=== PATIENT | female | born 1935 | race Caucasian/White ===

== ENCOUNTER 2018-10-16 10:13 | Inpatient (IN) ==
[2018-10-16] MEDS ORDERED: SODIUM CHLORIDE 0.9% 1,000 ML IV STA ×2 (10:36→12:09)
[2018-10-16] MEDS ORDERED: PIPERACILLIN/TAZOBACTAM 3,375 MG in SODIUM CHLORIDE 0.9% 100 ML IV STA (10:36)
[2018-10-16 10:54] LABS: Basophils # 0.1 10*3/uL (0.0-0.2); Basophils % 1.3 % (0.0-0.8); Hematocrit 48.7 VOL% (35.7-47.0); Hemoglobin 16.3 GM/DL (12.0-16.0); Immature Granulocytes % 0.7 %; Immature Granulocytes Absolute 0.03 #; Lymphocytes # 0.2 10*3/uL (1.4-4.0); Lymphocytes % 3.6 % (21.3-54.2); Mean Corpuscular HGB Conc 33.5 GM/DL (32-36); Mean Corpuscular Hemoglobin 33 PG (27-34); Mean Corpuscular Volume 99.2 FL (87-102); Mean Platelet Volume 12.2 FL (9.6-12.0); Monocytes # 0.1 10*3/uL (0.11-0.8); Monocytes % 1.1 % (1.7-12.7); Neutrophils # 4.2 10*3/uL (1.4-7.4); Neutrophils % 93.3 % (38.7-73.9); Platelet Count 108 T/CUMM (130-400); Red Blood Count 4.91 MC/CUMM (3.8-5.5); Red Cell Distribution Width 14.5 % (9.3-17.3); White Blood Count 4.5 T/CUMM (4-12)
[2018-10-16 11:03] LABS: Apearance,Urine CLOUDY (Clear); Bacteria,Urine Many /HPF (Few); Bilirubin,Urine Negative (Negative); Blood, Urine Moderate mg/dL (Negative); Glucose,Urine (UA) Negative (Negative); Ketones,Urine Negative (Negative); Mucus,Urine Few /LPF (Occasional); Nitrite,Urine Negative (Negative); Protein,Urine 30 MG/DL; Urine Color Amber (Yellow); Urine Specific Gravity 1.023 (1.001-1.035); Urine Urobilinogen < 2.0 EU/DL (0.2-1.0); WBC,Urine 5 /HPF (0-6)
[2018-10-16] MEDS ORDERED: KETOROLAC 30 MG/1 ML VIAL IV STA (11:10)
[2018-10-16] MEDS ORDERED: KETOROLAC 30 MG/1 ML VIAL ONE (11:11)
[2018-10-16 11:25] LABS: Alanine Aminotransferase 71 U/L (13-56); Albumin 2.9 G/DL (3.4-5.0); Alkaline Phosphatase 83 U/L (45-117); Aspartate Amino Transferase 205 U/L (0-37); Band Neutrophils 7 % (0-10); Blood Urea Nitrogen 81 MG/DL (7-18); Calcium 8.8 MG/DL (8.5-10.1); Glucose 71 MG/DL (74-106); Lymphocytes 5 % (20-55); Osmolality,Calculated 304.1 MOS/KG (273-304); Platelet Estimate Decreased; Potassium 4.4 MMOL/L (3.5-5.1); Segmented Neutrophils 85 % (50-85); Sodium 142 MMOL/L (136-145); Total Cells Counted 100; Total Protein 7.6 G/DL (6.4-8.3)
[2018-10-16 11:26] LABS: Hypochromasia Slight; Ovalocytes Slight
[2018-10-16 11:32] LABS: Lactic Acid 7.6 MMOL/L (0.4-2.0)
[2018-10-16] MEDS ORDERED: SODIUM CHLORIDE 0.9% 1,000 ML IV SCH (13:52)
[2018-10-16] MEDS ORDERED: ACETAMINOPHEN 325 MG TABLET PO PRN (13:52)
[2018-10-16] MEDS ORDERED: ONDANSETRON 4 MG/2 ML VIAL IV PRN (13:52)
[2018-10-16] MEDS: FAMOTIDINE 20 MG/2 ML VIAL IV SCH (14:43)
[2018-10-16] MEDS: metroNIDAZOLE INJ 500 MG in PREMIX 1 EACH IV SCH ×2 (14:43→22:25)
[2018-10-16] MEDS: HYDROmorphone 2 MG/1 ML VIAL IV PRN (16:52)
[2018-10-16] MEDS ORDERED: DEXTROSE 5% NACL 0.9% 1,000 ML IV SCH (17:30)
[2018-10-16] MEDS: DEXTROSE 50% 25 GM/50 ML VIAL IV PRN (18:16)
[2018-10-16 19:23] LABS: ABG Base Excess -17.2 MMOL/L (-2.5-2.5); ABG HCO3 11.5 MMOL/L (20-26); ABG Oxygen Saturation 99.1 % (95-100); ABG PO2 212.1 MM HG (80-95); ABG TCO2 12.7 MMOL/L (23-27)
[2018-10-16 19:24] LABS: ABG PH 7.111 (7.35-7.45)
[2018-10-16] MEDS ORDERED: fentaNYL 100 MCG/2 ML VIAL IV ONE (19:42)
[2018-10-16] MEDS ORDERED: MIDAZOLAM 2 MG/2 ML VIAL IV ONE (19:42)
[2018-10-16] MEDS ORDERED: NOREPINEPHRINE 4 MG/4 ML VIAL IV ONE (19:47)
[2018-10-16] MEDS ORDERED: SODIUM BICARBONATE 50 MEQ/50 ML SYRINGE IV ONE ×2 (19:52→19:54)
[2018-10-16] MEDS ORDERED: SODIUM CHLORIDE 0.9% 1,000 ML IV ONE (19:53)
[2018-10-16] MEDS: NOREPINEPHRINE 8 MG in SODIUM CHLORIDE 0.9% 234 ML IV PRN (20:08)
[2018-10-16] MEDS ORDERED: ENOXAPARIN 30 MG/0.3 ML SYRINGE SUBCUT SCH (21:00)
[2018-10-16] MEDS: SODIUM BICARB INJ 50 MEQ in DEXTROSE 5% NACL 0.45% 1,000 ML IV SCH (21:07)
[2018-10-16 21:11] LABS: Lactic Acid 9.1 MMOL/L (0.4-2.0)
[2018-10-16 22:02] LABS: Basophils # 0.1 10*3/uL (0.0-0.2); Eosinophils % 0.4 % (0.00-10.9); Hematocrit 48.6 VOL% (35.7-47.0); Hemoglobin 15.8 GM/DL (12.0-16.0); Immature Granulocytes % 0.8 %; Immature Granulocytes Absolute 0.02 #; Lymphocytes # 0.3 10*3/uL (1.4-4.0); Lymphocytes % 9.8 % (21.3-54.2); Mean Corpuscular HGB Conc 32.5 GM/DL (32-36); Mean Corpuscular Hemoglobin 33 PG (27-34); Mean Corpuscular Volume 102.5 FL (87-102); Monocytes # 0.1 10*3/uL (0.11-0.8); Monocytes % 4.3 % (1.7-12.7); NRBC # 0.02 10*3/uL; Neutrophils # 2.1 10*3/uL (1.4-7.4); Neutrophils % 82.7 % (38.7-73.9); Red Blood Count 4.74 MC/CUMM (3.8-5.5); White Blood Count 2.5 T/CUMM (4-12)
[2018-10-16 22:06] LABS: Platelet Count 63 T/CUMM (130-400)
[2018-10-16 22:27] LABS: Albumin 2.3 G/DL (3.4-5.0); Bilirubin,Total 2.8 MG/DL (0.2-1.0); Calcium 7.9 MG/DL (8.5-10.1); Osmolality,Calculated 320.3 MOS/KG (273-304); Potassium 3.6 MMOL/L (3.5-5.1); Total Protein 6.4 G/DL (6.4-8.3)
[2018-10-16 22:33] LABS: Band Neutrophils 4 % (0-10); Lymphocytes 15 % (20-55); Metamyelocytes 2 %; Myelocytes 3 %; Segmented Neutrophils 68 % (50-85)
[2018-10-16 22:34] LABS: Ovalocytes 1+; Platelet Estimate Decreased
[2018-10-16 22:35] LABS: Total Cells Counted 100
[2018-10-17] MEDS: PIPERACILLIN/TAZOBACTAM 3,375 MG in SODIUM CHLORIDE 0.9% 100 ML IV SCH ×2 (00:29→07:40)
[2018-10-17] MEDS: NOREPINEPHRINE 8 MG in SODIUM CHLORIDE 0.9% 234 ML IV PRN (02:26)
[2018-10-17] MEDS: HYDROmorphone 2 MG/1 ML VIAL IV PRN ×2 (02:56→20:20)
[2018-10-17] MEDS: FAMOTIDINE 20 MG/2 ML VIAL IV SCH ×2 (03:22→13:52)
[2018-10-17] MEDS: DEXTROSE 50% 25 GM/50 ML VIAL IV PRN ×3 (03:23→19:50)
[2018-10-17] MEDS ORDERED: SODIUM BICARBONATE 50 MEQ/50 ML SYRINGE IV ONE ×3 (04:21→09:47)
[2018-10-17] MEDS: SODIUM BICARB INJ 50 MEQ in DEXTROSE 5% NACL 0.45% 1,000 ML IV SCH ×3 (04:31→20:31)
[2018-10-17 04:49] LABS: Basophils # 0.1 10*3/uL (0.0-0.2); Basophils % 2.7 % (0.0-0.8); Eosinophils % 0.3 % (0.00-10.9); Hematocrit 44.8 VOL% (35.7-47.0); Hemoglobin 14.5 GM/DL (12.0-16.0); Lymphocytes # 0.3 10*3/uL (1.4-4.0); Lymphocytes % 8.4 % (21.3-54.2); Mean Corpuscular HGB Conc 32.4 GM/DL (32-36); Mean Corpuscular Hemoglobin 33 PG (27-34); Mean Corpuscular Volume 101.4 FL (87-102); Mean Platelet Volume 13.7 FL (9.6-12.0); Monocytes # 0.1 10*3/uL (0.11-0.8); Monocytes % 4.7 % (1.7-12.7); NRBC # 0.02 10*3/uL; Neutrophils # 2.5 10*3/uL (1.4-7.4); Neutrophils % 83.9 % (38.7-73.9); Red Blood Count 4.42 MC/CUMM (3.8-5.5); Red Cell Distribution Width 15.1 % (9.3-17.3)
[2018-10-17 04:54] LABS: Platelet Count 48 T/CUMM (130-400)
[2018-10-17 05:13] LABS: Band Neutrophils 9 % (0-10); Hypochromasia Slight; Lymphocytes 14 % (20-55); Nucleated Red Blood Cells 1 (0-5); Platelet Estimate Decreased; Segmented Neutrophils 70 % (50-85); Total Cells Counted 100
[2018-10-17 05:14] LABS: Burr Cells Slight
[2018-10-17] MEDS: metroNIDAZOLE INJ 500 MG in PREMIX 1 EACH IV SCH (05:24)
[2018-10-17 05:30] LABS: Albumin 1.9 G/DL (3.4-5.0); Bilirubin,Total 2.4 MG/DL (0.2-1.0); Calcium 7.2 MG/DL (8.5-10.1); Osmolality,Calculated 320.6 MOS/KG (273-304); Potassium 3.7 MMOL/L (3.5-5.1); Total Protein 5.8 G/DL (6.4-8.3)
[2018-10-17 05:31] LABS: Troponin I 0.241 NG/ML (0.00-0.045)
[2018-10-17] MEDS ORDERED: LIDOCAINE 1%/EPI INJ 20 ML VIAL ONE (06:18)
[2018-10-17] MEDS ORDERED: NOREPINEPHRINE 4 MG/4 ML VIAL IV ONE (07:51)
[2018-10-17] MEDS ORDERED: MAGNESIUM SULF RIDER 2 GM in PREMIX 1 EACH IV ONE (09:00)
[2018-10-17] MEDS ORDERED: PROPOFOL 0 MG/0 ML BOTTLE IV ONE (09:06)
[2018-10-17] MEDS ORDERED: PHENYLEPHRINE DRIP 40 MG/250 ML PREMIX IV ONE (09:18)
[2018-10-17] MEDS ORDERED: SEVOFLURANE 1 UNIT/15 MINUTE INH ONE (09:25)
[2018-10-17] MEDS ORDERED: PHENYLEPHRINE DRIP 40 MG/250 ML PREMIX IV PRN (09:25)
[2018-10-17] MEDS ORDERED: MIDAZOLAM 2 MG/2 ML VIAL ONE (09:25)
[2018-10-17] MEDS ORDERED: KETAMINE 500 MG/10 ML VIAL ONE (09:26)
[2018-10-17] MEDS ORDERED: PHENYLEPHRINE 10 MG/1 ML VIAL IV ONE (09:26)
[2018-10-17] MEDS ORDERED: ETOMIDATE 40 MG/20 ML VIAL IV ONE (09:27)
[2018-10-17] MEDS ORDERED: SUCCINYLCHOLINE 200 MG/10 ML VIAL ONE (09:27)
[2018-10-17] MEDS ORDERED: SODIUM CHLORIDE 0.9% 500 ML IV ONE ×2 (09:28→10:27)
[2018-10-17] MEDS ORDERED: LACTATED RINGERS 1,000 ML IV ONE (09:28)
[2018-10-17] MEDS ORDERED: SODIUM CHLORIDE 0.9% 1,000 ML IV ONE ×3 (09:28→12:57)
[2018-10-17] MEDS ORDERED: ROCURONIUM 100 MG/10 ML VIAL IV ONE (09:28)
[2018-10-17 09:35] LABS: Pt O2 Delivery Device Ventilator
[2018-10-17 09:36] LABS: ABG HCO3 15.2 MMOL/L (20-26); ABG Oxygen Saturation 97.8 % (95-100); ABG PCO2 43.3 MM HG (35-48); ABG PO2 126.3 MM HG (80-95); ABG TCO2 16.5 MMOL/L (23-27)
[2018-10-17 09:39] LABS: ABG PH 7.162 (7.35-7.45)
[2018-10-17] MEDS ORDERED: MAGNESIUM SULF RIDER 50 ML IV ONE (09:52)
[2018-10-17] MEDS ORDERED: MEROPENEM 1,000 MG in SODIUM CHLORIDE 0.9% 100 ML IV SCH (10:30)
[2018-10-17] MEDS: LEVOFLOXACIN INJ 500 MG in PREMIX 1 EACH IV SCH (10:35)
[2018-10-17] MEDS: HYDROCORTISONE 100 MG VIAL IV SCH ×3 (10:35→21:21)
[2018-10-17] MEDS: PHENYLEPHRINE INJ 160 MG in SODIUM CHLORIDE 0.9% 234 ML IV PRN ×2 (10:49→17:17)
[2018-10-17 11:16] LABS: Lactic Acid 11.9 MMOL/L (0.4-2.0)
[2018-10-17] MEDS: ALBUMIN 25% 25 GM in PREMIX 1 EACH IV SCH ×3 (11:26→22:00)
[2018-10-17] MEDS: NOREPINEPHRINE 16 MG in SODIUM CHLORIDE 0.9% 234 ML IV PRN ×2 (11:26→17:17)
[2018-10-17] MEDS ORDERED: CALCIUM GLUCONATE 2,000 MG in SODIUM CHLORIDE 0.9% 100 ML IV ONE (12:39)
[2018-10-17] MEDS ORDERED: HEPARIN 10,000 UNIT/10 ML VIAL IV PRN (15:36)
[2018-10-17 16:01] LABS: Hepatitis A Ab IgM Quant 0.19 Index; Hepatitis A Ab IgM Result Negative (Negative); Hepatitis B Core IgM Quant 0.15 Index; Hepatitis B Core IgM Result Negative (Negative); Hepatitis B Surface Ag Quant < 0.10 Index; Hepatitis B Surface Ag Result Negative (Negative); Hepatitis C Virus Ab Quant 0.02 Index; Hepatitis C Virus Ab Result Negative (Negative)
[2018-10-17] MEDS ORDERED: ALBUMIN 25% 25 GM in PREMIX 1 EACH IV ONE (17:00)
[2018-10-18] MEDS: HYDROmorphone 2 MG/1 ML VIAL IV PRN ×4 (00:12→19:32)
[2018-10-18] MEDS: NOREPINEPHRINE 16 MG in SODIUM CHLORIDE 0.9% 234 ML IV PRN ×4 (00:20→22:13)
[2018-10-18] MEDS: SODIUM BICARB INJ 50 MEQ in DEXTROSE 5% NACL 0.45% 1,000 ML IV SCH ×5 (00:37→22:32)
[2018-10-18] MEDS: PHENYLEPHRINE INJ 160 MG in SODIUM CHLORIDE 0.9% 234 ML IV PRN (01:58)
[2018-10-18] MEDS: FAMOTIDINE 20 MG/2 ML VIAL IV SCH ×2 (02:17→14:41)
[2018-10-18 03:29] LABS: ABG Base Excess -8.6 MMOL/L (-2.5-2.5); ABG HCO3 17.2 MMOL/L (20-26); ABG PCO2 36.5 MM HG (35-48); ABG PO2 50.9 MM HG (80-95); ABG TCO2 18.3 MMOL/L (23-27); Allen Test Positive; Pt O2 Delivery Device Ventilator
[2018-10-18] MEDS: HYDROCORTISONE 100 MG VIAL IV SCH ×4 (04:40→22:19)
[2018-10-18 05:58] LABS: Alanine Aminotransferase 114 U/L (13-56); Albumin 2.7 G/DL (3.4-5.0); Alkaline Phosphatase 152 U/L (45-117); Aspartate Amino Transferase 463 U/L (0-37); Blood Urea Nitrogen 60 MG/DL (7-18); Calcium 6.2 MG/DL (8.5-10.1); Glucose 147 MG/DL (74-106); Osmolality,Calculated 305.8 MOS/KG (273-304); Potassium 3.8 MMOL/L (3.5-5.1); Sodium 144 MMOL/L (136-145)
[2018-10-18 06:02] LABS: Lactic Acid 10.4 MMOL/L (0.4-2.0)
[2018-10-18 06:04] LABS: Troponin I 0.251 NG/ML (0.00-0.045)
[2018-10-18 06:28] LABS: Basophils # 0.1 10*3/uL (0.0-0.2); Basophils % 0.9 % (0.0-0.8); Eosinophils % 0.1 % (0.00-10.9); Hematocrit 25.8 VOL% (35.7-47.0); Hemoglobin 8.4 GM/DL (12.0-16.0); Immature Granulocytes % 0.9 %; Immature Granulocytes Absolute 0.12 #; Lymphocytes # 0.6 10*3/uL (1.4-4.0); Mean Corpuscular HGB Conc 32.6 GM/DL (32-36); Mean Corpuscular Hemoglobin 33 PG (27-34); Mean Corpuscular Volume 102.4 FL (87-102); Mean Platelet Volume 13.3 FL (9.6-12.0); Monocytes # 0.2 10*3/uL (0.11-0.8); Monocytes % 1.7 % (1.7-12.7); NRBC # 0.11 10*3/uL; Neutrophils # 11.6 10*3/uL (1.4-7.4); Neutrophils % 91.4 % (38.7-73.9); Red Blood Count 2.52 MC/CUMM (3.8-5.5); Red Cell Distribution Width 15.9 % (9.3-17.3); White Blood Count 12.7 T/CUMM (4-12)
[2018-10-18 06:31] LABS: Platelet Count 22 T/CUMM (130-400)
[2018-10-18] MEDS ORDERED: SODIUM CHLORIDE 0.9% 1,000 ML IV PRN (06:42)
[2018-10-18 06:49] LABS: Band Neutrophils 7 % (0-10); Burr Cells Slight; Hypochromasia 1+; Lymphocytes 11 % (20-55); Nucleated Red Blood Cells 1 (0-5); Ovalocytes Slight; Platelet Estimate Decreased; Segmented Neutrophils 72 % (50-85); Total Cells Counted 100
[2018-10-18 07:20] LABS: INR 1.2; PT Patient Result 13.1 SECS
[2018-10-18 07:30] LABS: Partial Thromboplastin Time 43.5 SECS (0-40)
[2018-10-18] MEDS ORDERED: MEROPENEM 1,000 MG in SODIUM CHLORIDE 0.9% 100 ML IV SCH (12:00)
[2018-10-18] MEDS: PROPOFOL 1,000 MG/100 ML BOTTLE IV PRN (14:00)
[2018-10-19] MEDS: SODIUM BICARB INJ 50 MEQ in DEXTROSE 5% NACL 0.45% 1,000 ML IV SCH ×5 (00:52→19:14)
[2018-10-19] MEDS: HYDROCORTISONE 100 MG VIAL IV SCH ×3 (03:02→17:41)
[2018-10-19] MEDS: FAMOTIDINE 20 MG/2 ML VIAL IV SCH ×2 (03:04→13:19)
[2018-10-19 03:54] LABS: Basophils # 0.2 10*3/uL (0.0-0.2); Basophils % 0.9 % (0.0-0.8); Hematocrit 30.6 VOL% (35.7-47.0); Hemoglobin 10.4 GM/DL (12.0-16.0); Immature Granulocytes % 1.8 %; Immature Granulocytes Absolute 0.33 #; Lymphocytes % 5.6 % (21.3-54.2); Mean Corpuscular Hemoglobin 34 PG (27-34); Mean Platelet Volume 13.3 FL (9.6-12.0); Monocytes # 0.4 10*3/uL (0.11-0.8); Monocytes % 1.9 % (1.7-12.7); Neutrophils # 16.1 10*3/uL (1.4-7.4); Neutrophils % 89.8 % (38.7-73.9); Red Blood Count 3.09 MC/CUMM (3.8-5.5); Red Cell Distribution Width 15.8 % (9.3-17.3)
[2018-10-19 04:08] LABS: Platelet Count 29 T/CUMM (130-400)
[2018-10-19 04:11] LABS: Calcium 6.2 MG/DL (8.5-10.1); Osmolality,Calculated 296.4 MOS/KG (273-304); Potassium 3.9 MMOL/L (3.5-5.1)
[2018-10-19 04:15] LABS: Lactic Acid 7.2 MMOL/L (0.4-2.0)
[2018-10-19 04:27] LABS: Allen Test Positive; Pt O2 Delivery Device Ventilator
[2018-10-19 04:29] LABS: ABG Base Excess -4.6 MMOL/L (-2.5-2.5); ABG HCO3 20.6 MMOL/L (20-26); ABG Oxygen Saturation 98.1 % (95-100); ABG PH 7.441 (7.35-7.45); ABG TCO2 16.5 MMOL/L (23-27)
[2018-10-19 04:53] LABS: Anisocytosis 1+; Band Neutrophils 22 % (0-10); Lymphocytes 4 % (20-55); Macrocytosis 1+; Metamyelocytes 5 %; Ovalocytes Few; Platelet Estimate Decreased; Segmented Neutrophils 67 % (50-85); Total Cells Counted 100
[2018-10-19] MEDS ORDERED: SODIUM CHLORIDE 0.9% 1,000 ML IV PRN (05:27)
[2018-10-19] MEDS ORDERED: MAGNESIUM SULF RIDER 4 GM in PREMIX 1 EACH IV PRN (05:31)
[2018-10-19] MEDS ORDERED: MAGNESIUM SULF RIDER 2 GM in PREMIX 1 EACH IV PRN (05:31)
[2018-10-19] MEDS ORDERED: CALCIUM GLUCONATE 2,000 MG in SODIUM CHLORIDE 0.9% 100 ML IV ONE (06:00)
[2018-10-19] MEDS: cefTRIAXone 1,000 MG in SYRINGE 1 EACH IV SCH (06:35)
[2018-10-19] MEDS: NOREPINEPHRINE 16 MG in SODIUM CHLORIDE 0.9% 234 ML IV PRN (12:35)
[2018-10-19] MEDS: LEVOFLOXACIN INJ 500 MG in PREMIX 1 EACH IV SCH (13:19)
[2018-10-19] MEDS: HYDROmorphone 2 MG/1 ML VIAL IV PRN (14:55)
[2018-10-19] MEDS: PROPOFOL 1,000 MG/100 ML BOTTLE IV PRN (18:05)
[2018-10-20] MEDS: SODIUM BICARB INJ 50 MEQ in DEXTROSE 5% NACL 0.45% 1,000 ML IV SCH ×6 (00:07→22:11)
[2018-10-20] MEDS: HYDROCORTISONE 100 MG VIAL IV SCH ×4 (00:11→17:20)
[2018-10-20] MEDS: FAMOTIDINE 20 MG/2 ML VIAL IV SCH ×2 (02:12→13:07)
[2018-10-20] MEDS: NOREPINEPHRINE 16 MG in SODIUM CHLORIDE 0.9% 234 ML IV PRN ×2 (03:25→21:11)
[2018-10-20 03:50] LABS: ABG Base Excess -1.4 MMOL/L (-2.5-2.5); ABG HCO3 21.1 MMOL/L (20-26); ABG Oxygen Saturation 98.7 % (95-100); ABG PCO2 28.2 MM HG (35-48); ABG PH 7.492 (7.35-7.45); ABG PO2 195.4 MM HG (80-95); Allen Test Positive; Pt O2 Delivery Device Ventilator
[2018-10-20 06:31] LABS: Basophils # 0.2 10*3/uL (0.0-0.2); Basophils % 0.7 % (0.0-0.8); Hematocrit 29.3 VOL% (35.7-47.0); Hemoglobin 9.7 GM/DL (12.0-16.0); Immature Granulocytes % 3.8 %; Immature Granulocytes Absolute 0.79 #; Lymphocytes # 1.5 10*3/uL (1.4-4.0); Lymphocytes % 7.4 % (21.3-54.2); Mean Corpuscular HGB Conc 33.1 GM/DL (32-36); Mean Corpuscular Hemoglobin 32 PG (27-34); Mean Corpuscular Volume 97.3 FL (87-102); Mean Platelet Volume 13.9 FL (9.6-12.0); Monocytes # 0.7 10*3/uL (0.11-0.8); Monocytes % 3.5 % (1.7-12.7); NRBC # 0.15 10*3/uL; Neutrophils # 17.4 10*3/uL (1.4-7.4); Neutrophils % 84.6 % (38.7-73.9); Red Blood Count 3.01 MC/CUMM (3.8-5.5); Red Cell Distribution Width 15.5 % (9.3-17.3); White Blood Count 20.5 T/CUMM (4-12)
[2018-10-20 06:38] LABS: Platelet Count 32 T/CUMM (130-400)
[2018-10-20] MEDS: cefTRIAXone 1,000 MG in SYRINGE 1 EACH IV SCH (06:40)
[2018-10-20 06:54] LABS: Calcium 6.1 MG/DL (8.5-10.1); Osmolality,Calculated 299.8 MOS/KG (273-304); Potassium 3.9 MMOL/L (3.5-5.1)
[2018-10-20 08:13] LABS: Anisocytosis 1+; Band Neutrophils 21 % (0-10); Lymphocytes 9 % (20-55); Nucleated Red Blood Cells 2 (0-5); Platelet Estimate Decreased; Poikilocytosis 1+; Segmented Neutrophils 70 % (50-85); Total Cells Counted 100
[2018-10-20 08:14] LABS: Macrocytosis Slight
[2018-10-20] MEDS: HYDROmorphone 2 MG/1 ML VIAL IV PRN ×2 (09:51→16:23)
[2018-10-20] MEDS: PROPOFOL 1,000 MG/100 ML BOTTLE IV PRN (22:11)
[2018-10-21] MEDS: HYDROCORTISONE 100 MG VIAL IV SCH ×4 (00:59→17:27)
[2018-10-21 04:21] LABS: ABG Base Excess -0.1 MMOL/L (-2.5-2.5); ABG HCO3 24.4 MMOL/L (20-26); ABG Oxygen Saturation 99.2 % (95-100); ABG PCO2 24.6 MM HG (35-48); ABG PH 7.546 (7.35-7.45); ABG TCO2 19.3 MMOL/L (23-27); Pt O2 Delivery Device Ventilator
[2018-10-21] MEDS: FAMOTIDINE 20 MG/2 ML VIAL IV SCH ×2 (04:48→13:18)
[2018-10-21] MEDS: HYDROmorphone 2 MG/1 ML VIAL IV PRN (04:55)
[2018-10-21 05:13] LABS: Basophils # 0.1 10*3/uL (0.0-0.2); Basophils % 0.3 % (0.0-0.8); Hematocrit 27.1 VOL% (35.7-47.0); Hemoglobin 9.3 GM/DL (12.0-16.0); Immature Granulocytes % 5.4 %; Immature Granulocytes Absolute 0.94 #; Lymphocytes # 1.2 10*3/uL (1.4-4.0); Lymphocytes % 6.7 % (21.3-54.2); Mean Corpuscular HGB Conc 34.3 GM/DL (32-36); Mean Corpuscular Hemoglobin 33 PG (27-34); Mean Corpuscular Volume 96.1 FL (87-102); Mean Platelet Volume 15.2 FL (9.6-12.0); Monocytes # 0.5 10*3/uL (0.11-0.8); Monocytes % 2.7 % (1.7-12.7); NRBC # 0.18 10*3/uL; Neutrophils # 14.9 10*3/uL (1.4-7.4); Neutrophils % 84.9 % (38.7-73.9); Red Blood Count 2.82 MC/CUMM (3.8-5.5); Red Cell Distribution Width 14.6 % (9.3-17.3); White Blood Count 17.5 T/CUMM (4-12)
[2018-10-21 05:16] LABS: Platelet Count 32 T/CUMM (130-400)
[2018-10-21 05:38] LABS: Calcium 5.9 MG/DL (8.5-10.1); Osmolality,Calculated 301.4 MOS/KG (273-304); Potassium 4.2 MMOL/L (3.5-5.1)
[2018-10-21 06:14] LABS: Band Neutrophils 26 % (0-10); Lymphocytes 6 % (20-55); Nucleated Red Blood Cells 2 (0-5); Platelet Estimate Decreased; Segmented Neutrophils 65 % (50-85); Total Cells Counted 100
[2018-10-21 06:15] LABS: Anisocytosis 1+; Polychromasia Slight
[2018-10-21] MEDS: cefTRIAXone 1,000 MG in SYRINGE 1 EACH IV SCH (06:23)
[2018-10-21] MEDS: SODIUM BICARB INJ 50 MEQ in DEXTROSE 5% NACL 0.45% 1,000 ML IV SCH (06:24)
[2018-10-21] MEDS: LEVOFLOXACIN INJ 500 MG in PREMIX 1 EACH IV SCH (10:37)
[2018-10-22] MEDS: FAMOTIDINE 20 MG/2 ML VIAL IV SCH ×2 (01:06→15:15)
[2018-10-22] MEDS: HYDROCORTISONE 100 MG VIAL IV SCH ×4 (01:06→18:35)
[2018-10-22] MEDS: HYDROmorphone 2 MG/1 ML VIAL IV PRN ×4 (01:09→23:19)
[2018-10-22 03:54] LABS: Allen Test Positive; Pt O2 Delivery Device Ventilator
[2018-10-22 03:58] LABS: ABG Base Excess 0.9 MMOL/L (-2.5-2.5); ABG HCO3 24.6 MMOL/L (20-26); ABG Oxygen Saturation 53.8 % (95-100); ABG PCO2 34.1 MM HG (35-48); ABG PH 7.462 (7.35-7.45); ABG TCO2 22.6 MMOL/L (23-27)
[2018-10-22 04:00] LABS: ABG PO2 29.3 MM HG (80-95)
[2018-10-22 04:24] LABS: Allen Test Positive; Pt O2 Delivery Device Ventilator
[2018-10-22 04:25] LABS: ABG Base Excess 0.5 MMOL/L (-2.5-2.5); ABG HCO3 24.8 MMOL/L (20-26); ABG Oxygen Saturation 92.3 % (95-100); ABG PCO2 28.4 MM HG (35-48); ABG PH 7.514 (7.35-7.45); ABG PO2 58.9 MM HG (80-95)
[2018-10-22 04:54] LABS: Basophils % 0.2 % (0.0-0.8); Hematocrit 24.3 VOL% (35.7-47.0); Hemoglobin 8.5 GM/DL (12.0-16.0); Immature Granulocytes % 4.9 %; Immature Granulocytes Absolute 0.74 #; Lymphocytes # 1.5 10*3/uL (1.4-4.0); Lymphocytes % 9.8 % (21.3-54.2); Mean Corpuscular Hemoglobin 33 PG (27-34); Mean Corpuscular Volume 94.9 FL (87-102); Monocytes # 0.4 10*3/uL (0.11-0.8); Monocytes % 2.5 % (1.7-12.7); NRBC # 0.14 10*3/uL; Neutrophils # 12.6 10*3/uL (1.4-7.4); Neutrophils % 82.6 % (38.7-73.9); Platelet Count 45 T/CUMM (130-400); Red Blood Count 2.56 MC/CUMM (3.8-5.5); Red Cell Distribution Width 14.4 % (9.3-17.3); White Blood Count 15.2 T/CUMM (4-12)
[2018-10-22 05:24] LABS: Osmolality,Calculated 308.2 MOS/KG (273-304); Potassium 5.1 MMOL/L (3.5-5.1)
[2018-10-22 05:25] LABS: Calcium 5.6 MG/DL (8.5-10.1)
[2018-10-22 05:36] LABS: Atypical Lymphocytes Few; Hypochromasia 1+; Lymphocytes 11 % (20-55); Microcytosis Slight; Nucleated Red Blood Cells 3 (0-5); Polychromasia Slight; Segmented Neutrophils 84 % (50-85); Target Cells Slight; Total Cells Counted 100
[2018-10-22 05:37] LABS: Platelet Estimate Decreased
[2018-10-22] MEDS: cefTRIAXone 1,000 MG in SYRINGE 1 EACH IV SCH (06:40)
[2018-10-22] MEDS ORDERED: CALCIUM GLUCONATE 2,000 MG in SODIUM CHLORIDE 0.9% 100 ML IV ONE (09:00)
[2018-10-22] MEDS: BACITRACIN OINT 0.9 GM PACK TOP SCH (11:37)
[2018-10-22] MEDS ORDERED: ALTEPLASE 2 MG VIAL IV ONE (15:00)
[2018-10-22] MEDS ORDERED: FLUCONAZOLE INJ 400 MG in PREMIX 1 EACH IV ONE (15:30)
[2018-10-22] MEDS: NOREPINEPHRINE 16 MG in SODIUM CHLORIDE 0.9% 234 ML IV PRN (16:25)
[2018-10-23] MEDS: HYDROCORTISONE 100 MG VIAL IV SCH ×5 (00:18→23:00)
[2018-10-23] MEDS: FAMOTIDINE 20 MG/2 ML VIAL IV SCH (00:52)
[2018-10-23] MEDS: HYDROmorphone 2 MG/1 ML VIAL IV PRN ×5 (03:30→21:19)
[2018-10-23 05:05] LABS: Basophils # 0.1 10*3/uL (0.0-0.2); Basophils % 0.3 % (0.0-0.8); Hematocrit 26.3 VOL% (35.7-47.0); Hemoglobin 8.9 GM/DL (12.0-16.0); Immature Granulocytes % 1.2 %; Immature Granulocytes Absolute 0.25 #; Lymphocytes # 1.6 10*3/uL (1.4-4.0); Lymphocytes % 7.5 % (21.3-54.2); Mean Corpuscular HGB Conc 33.8 GM/DL (32-36); Mean Corpuscular Hemoglobin 33 PG (27-34); Mean Platelet Volume 14.6 FL (9.6-12.0); Monocytes # 0.6 10*3/uL (0.11-0.8); Monocytes % 2.5 % (1.7-12.7); NRBC # 0.11 10*3/uL; Neutrophils # 19.2 10*3/uL (1.4-7.4); Neutrophils % 88.5 % (38.7-73.9); Platelet Count 96 T/CUMM (130-400); Red Blood Count 2.74 MC/CUMM (3.8-5.5); Red Cell Distribution Width 14.6 % (9.3-17.3); White Blood Count 21.6 T/CUMM (4-12)
[2018-10-23 05:25] LABS: Osmolality,Calculated 315.5 MOS/KG (273-304); Potassium 5.8 MMOL/L (3.5-5.1)
[2018-10-23 05:27] LABS: Calcium 5.8 MG/DL (8.5-10.1)
[2018-10-23 05:32] LABS: ABG Base Excess -2.2 MMOL/L (-2.5-2.5); ABG HCO3 22.6 MMOL/L (20-26); ABG Oxygen Saturation 97.6 % (95-100); ABG PCO2 27.5 MM HG (35-48); ABG PO2 92.6 MM HG (80-95); ABG TCO2 18.9 MMOL/L (23-27); Pt O2 Delivery Device Ventilator
[2018-10-23 05:40] LABS: Lymphocytes 2 % (20-55); Segmented Neutrophils 94 % (50-85); Total Cells Counted 100
[2018-10-23 05:41] LABS: Platelet Estimate Decreased; Polychromasia Few
[2018-10-23] MEDS: cefTRIAXone 1,000 MG in SYRINGE 1 EACH IV SCH (06:09)
[2018-10-23] MEDS ORDERED: CALCIUM GLUCONATE 2,000 MG in SODIUM CHLORIDE 0.9% 100 ML IV ONE (11:42)
[2018-10-23] MEDS: BACITRACIN OINT 0.9 GM PACK TOP SCH (12:24)
[2018-10-23] MEDS: FLUCONAZOLE INJ 200 MG in PREMIX 1 EACH IV SCH (14:59)
[2018-10-23] MEDS ORDERED: CALCIUM GLUCONATE 2,000 MG in SODIUM CHLORIDE 0.9% 100 ML IV PRN (16:27)
[2018-10-23] MEDS: NOREPINEPHRINE 16 MG in SODIUM CHLORIDE 0.9% 234 ML IV PRN (22:57)
[2018-10-24] MEDS: HYDROmorphone 2 MG/1 ML VIAL IV PRN ×3 (01:29→23:10)
[2018-10-24 03:40] LABS: ABG Base Excess -2.4 MMOL/L (-2.5-2.5); ABG HCO3 22.3 MMOL/L (20-26); ABG PCO2 25.7 MM HG (35-48); ABG PH 7.497 (7.35-7.45); ABG PO2 84.9 MM HG (80-95); ABG TCO2 18.3 MMOL/L (23-27); Allen Test Positive; Pt O2 Delivery Device Ventilator
[2018-10-24 04:49] LABS: Prealbumin 11.6 MG/DL (20-40)
[2018-10-24] MEDS: HYDROCORTISONE 100 MG VIAL IV SCH ×3 (06:15→18:02)
[2018-10-24] MEDS: cefTRIAXone 1,000 MG in SYRINGE 1 EACH IV SCH (06:15)
[2018-10-24] MEDS: BACITRACIN OINT 0.9 GM PACK TOP SCH (10:43)
[2018-10-24] MEDS: FAMOTIDINE 20 MG/2 ML VIAL IV SCH (10:43)
[2018-10-24] MEDS: FLUCONAZOLE INJ 200 MG in PREMIX 1 EACH IV SCH (15:05)
[2018-10-24 15:16] VITALS: BP 125/53
[2018-10-24] MEDS: NOREPINEPHRINE 16 MG in SODIUM CHLORIDE 0.9% 234 ML IV PRN (21:40)
[2018-10-25] MEDS: HYDROCORTISONE 100 MG VIAL IV SCH ×3 (00:13→13:12)
[2018-10-25] MEDS: HYDROmorphone 2 MG/1 ML VIAL IV PRN (04:25)
[2018-10-25 04:37] LABS: ABG Base Excess -14.1 MMOL/L (-2.5-2.5); ABG HCO3 11.3 MMOL/L (20-26); ABG Oxygen Saturation 96.3 % (95-100); ABG PCO2 24.9 MM HG (35-48); ABG PH 7.274 (7.35-7.45); ABG PO2 107.1 MM HG (80-95); Allen Test Positive; Pt O2 Delivery Device Ventilator
[2018-10-25 05:15] LABS: INR 1.3
[2018-10-25 05:28] LABS: Basophils % 0.1 % (0.0-0.8); Hematocrit 22.7 VOL% (35.7-47.0); Immature Granulocytes % 1.8 %; Immature Granulocytes Absolute 0.38 #; Lymphocytes % 4.6 % (21.3-54.2); Mean Corpuscular HGB Conc 31.7 GM/DL (32-36); Mean Corpuscular Hemoglobin 33 PG (27-34); Mean Corpuscular Volume 103.2 FL (87-102); Mean Platelet Volume 14.6 FL (9.6-12.0); Monocytes # 0.9 10*3/uL (0.11-0.8); Monocytes % 4.3 % (1.7-12.7); NRBC # 0.06 10*3/uL; Neutrophils # 18.9 10*3/uL (1.4-7.4); Neutrophils % 89.2 % (38.7-73.9); Red Cell Distribution Width 15.3 % (9.3-17.3); White Blood Count 21.2 T/CUMM (4-12)
[2018-10-25] MEDS: cefTRIAXone 1,000 MG in SYRINGE 1 EACH IV SCH (06:02)
[2018-10-25 06:29] LABS: Hemoglobin 7.2 GM/DL (12.0-16.0); Platelet Count 143 T/CUMM (130-400)
[2018-10-25 07:45] LABS: Anisocytosis 1+; Band Neutrophils 15 % (0-10); Lymphocytes 4 % (20-55); Platelet Estimate Adequate; Polychromasia Slight; Segmented Neutrophils 77 % (50-85); Total Cells Counted 100
[2018-10-25 07:46] LABS: Giant Platelets Few; Macrocytosis 1+
[2018-10-25] MEDS: FAMOTIDINE 20 MG/2 ML VIAL IV SCH (08:42)
[2018-10-25] MEDS: BACITRACIN OINT 0.9 GM PACK TOP SCH (08:46)
[2018-10-25 09:42] LABS: Calcium 6.7 MG/DL (8.5-10.1); Osmolality,Calculated 305.4 MOS/KG (273-304)
[2018-10-25 09:44] LABS: Potassium 7.1 MMOL/L (3.5-5.1)
== END 2018-10-25 13:02 | disposition expired | DRG 853 ==
LOC: EDUNIT# → EDBD → N.ED 10:13 → N.ICU 11:38 → SUATTDRO 12:09 → N.EDINP 12:09 → N.ICU 12:33
PROVIDERS: ADMIT Internal Medicine; ATTEND Internal Medicine
PROC: LAPCHOL (2018-10-17 06:35)